=== PATIENT | female | born 1980 | race Caucasian/White ===

== ENCOUNTER 2021-06-08 10:34 | Emergency (ER) | payer OTHER ==
[2021-06-08] MEDS ORDERED: ONDANSETRON 4 MG/2 ML VIAL IVP STA (11:08)
[2021-06-08] MEDS ORDERED: SODIUM CHLORIDE 0.9% 1,000 ML IV STA (11:08)
[2021-06-08] MEDS ORDERED: KETOROLAC 15 MG/ML 1 ML VIAL IVP STA (11:09)
--- NOTE | 2021-06-08 11:18 | ED ---
General Adult HPI - General Chief complaint: Abdominal Pain Stated complaint: possible kidney infection Time Seen by Provider: 06/08/21 11:08 Source: patient, RN notes reviewed, old records reviewed Mode of arrival: ambulatory Limitations: no limitations - History of Present Illness Initial comments: 40-year-old female presents to the emergency room with chills, right flank pain, nausea and vomiting. She states that it started yesterday. She states that she has had watery emesis with generalized malaise. She does have a history of urinary tract infections she denies any fevers at home. No medical history -: days(s) (1) Location: right (flank) Severity scale (1-10): 7 Quality: aching, constant Consistency: constant Associated Symptoms: fever/chills, malaise, nausea/vomiting - Related Data Home Medications Medication Instructions Recorded Confirmed Ibuprofen [Motrin Ib] 800 mg PO Q8H PRN 06/08/21 06/08/21 Previous Rx's Medication Instructions Recorded Ondansetron Odt [Zofran Odt] 4 mg PO Q8HR PRN #10 tab 06/08/21 Sulfamethox-Tmp 800-160Mg [Bactrim 1 each PO Q12HR 14 Days #28 tab 06/08/21 Ds] Allergies Allergy/AdvReac Type Severity Reaction Status Date / Time No Known Allergies Allergy Verified 06/08/21 11:29 Review of Systems ROS Statement: Those systems with pertinent positive or pertinent negative responses have been documented in the HPI. ROS Other: All systems not noted in ROS Statement are negative. Past Medical History Past Medical History: No Reported History History of Any Multi-Drug Resistant Organisms: None Reported Past Surgical History: Orthopedic Surgery Additional Past Surgical History / Comment(s): left wrist, brain surgery Past Psychological History: Depression Smoking Status: Never smoker Past Alcohol Use History: Rare Past Drug Use History: None Reported General Exam Limitations: no limitations General appearance: alert, in no apparent distress Eye exam: Present: normal appearance ENT exam: Present: normal exam, normal oropharynx, mucous membranes moist Respiratory exam: Present: normal lung sounds bilaterally. Absent: respiratory distress, wheezes, rales, rhonchi, stridor, decreased breath sounds, prolonged expiratory Cardiovascular Exam: Present: tachycardia, normal heart sounds GI/Abdominal exam: Present: soft. Absent: distended, guarding, rebound, rigid Extremities exam: Present: normal inspection, full ROM, normal capillary refill. Absent: tenderness, pedal edema, joint swelling, calf tenderness Back exam: Present: normal inspection, full ROM, CVA tenderness (R). Absent: tenderness, CVA tenderness (L), rash noted Neurological exam: Present: alert, oriented X3 Psychiatric exam: Present: normal affect, normal mood Skin exam: Present: warm, dry, intact, normal color. Absent: cyanosis, diaphoretic Course Vital Signs 06/08/21 06/08/21 06/08/21 10:39 12:25 15:14 Temperature 98.1 F 99.4 F 99.2 F Pulse Rate 127 H 116 H 126 H Respiratory 18 20 20 Rate Blood Pressure 103/50 129/70 128/67 O2 Sat by Pulse 100 99 100 Oximetry 06/08/21 16:37 Temperature 100.3 F H Pulse Rate 118 H Respiratory 20 Rate Blood Pressure 100/52 O2 Sat by Pulse 97 Oximetry - Reevaluation(s) Reevaluation #1: 06/08/21 12:17 Patient continues to have right flank pain, nausea and chills. Ultrasound of the renals and bladder ordered Time: 12:17 Reevaluation #2: 06/08/21 13:50 Upon re-exam patient does have right upper quadrant pain on palpation that radiates into her back. She states that she was told she has liver lesions in the past. She has never had a CAT scan. She continues to have 7 out of 10 pain. CAT scan was ordered. Time: 13:50 Medical Decision Making - Medical Decision Making Urine cloudy with 2+ ketones, small leukocyte esterase, 21 RBCs and rare bacteria. Patient will be treated for urinary tract infection. White blood cell count is 11.4, BUN and creatinine are within normal limits. Urinalysis shows 2+ ketones, 21 wbc's and rare bacteria. Ultrasound of the kidneys show no hydronephrosis, no nephrolithiasis and no masses identified. CT abdomen shows no calcified gallstones, no hepatic lesion, biliary tree of normal caliber. There is abnormal enhancement lower pole right kidney which may reflect underlying pyelonephritis. There is a simple cyst lower pole left kidney measuring 1.2 cm over patient's pain is right flank. Right ovarian cyst measuring 1.8 cm. There is no distinct renal mass. Urinary bladder is grossly unremarkable. The findings are suspicious for right-sided pyelonephritis in the lower pole of the right kidney. Case discussed with Dr. Zhong who recommended patient be given an additional dose of Rocephin in the emergency room antibiotics for 14 days and follow-up with her primary care doctor and urology this week. She was given strict return parameters to return if any new or worsening symptoms. Patient is agreeable to this plan of care. - Lab Data Result diagrams: 06/08/21 11:20 06/08/21 11:20 Lab Results 06/08/21 06/08/21 06/08/21 Range/Units 11:20 11:20 11:20 WBC 11.4 H (3.8-10.6) k/uL RBC 4.38 (3.80-5.40) m/uL Hgb 12.5 (11.4-16.0) gm/dL Hct 38.2 (34.0-46.0) % MCV 87.3 (80.0-100.0) fL MCH 28.6 (25.0-35.0) pg MCHC 32.7 (31.0-37.0) g/dL RDW 13.0 (11.5-15.5) % Plt Count 343 (150-450) k/uL MPV 7.1 Neutrophils % 87 % Lymphocytes % 9 % Monocytes % 3 % Eosinophils % 0 % Basophils % 0 % Neutrophils # 9.9 H (1.3-7.7) k/uL Lymphocytes # 1.0 (1.0-4.8) k/uL Monocytes # 0.4 (0-1.0) k/uL Eosinophils # 0.0 (0-0.7) k/uL Basophils # 0.0 (0-0.2) k/uL Sodium 137 (137-145) mmol/L Potassium 3.4 L (3.5-5.1) mmol/L Chloride 105 (98-107) mmol/L Carbon Dioxide 22 (22-30) mmol/L Anion Gap 10 mmol/L BUN 13 (7-17) mg/dL Creatinine 0.59 (0.52-1.04) mg/dL Est GFR (CKD-EPI)AfAm >90 (>60 ml/min/1.73 sqM) Est GFR (CKD-EPI)NonAf >90 (>60 ml/min/1.73 sqM) Glucose 112 H (74-99) mg/dL Calcium 9.2 (8.4-10.2) mg/dL Total Bilirubin 0.9 (0.2-1.3) mg/dL AST 14 (14-36) U/L ALT 9 (4-34) U/L Alkaline Phosphatase 76 (38-126) U/L Total Protein 7.2 (6.3-8.2) g/dL Albumin 4.2 (3.5-5.0) g/dL Urine Color Yellow Urine Appearance Cloudy H (Clear) Urine pH 8.5 H (5.0-8.0) Ur Specific [place] 1.018 (1.001-1.035) Urine Protein Trace H (Negative) Urine Glucose (UA) Negative (Negative) Urine Ketones 2+ H (Negative) Urine Blood Negative (Negative) Urine Nitrite Negative (Negative) Urine Bilirubin Negative (Negative) Urine Urobilinogen <2.0 (<2.0) mg/dL Ur Leukocyte Esterase Small H (Negative) Urine RBC 4 (0-5) /hpf Urine WBC 21 H (0-5) /hpf Ur Squamous Epith Cells 4 (0-4) /hpf Urine Bacteria Rare H (None) /hpf Urine Mucus Rare H (None) /hpf Disposition Clinical Impression: UTI (urinary tract infection), Pyelonephritis Disposition: HOME SELF-CARE Condition: Good Instructions (If sedation given, give patient instructions): Urinary Tract Infection in Women (ED) Additional Instructions: Increase your fluid intake, take antibiotics as prescribed, follow-up with the primary care doctor this week. Return to the emergency room with any new or worsening symptoms including inability to keep any food or fluids down, increas ed pain or fevers. Prescriptions: Sulfamethox-Tmp 800-160Mg [Bactrim Ds] 1 each PO Q12HR 14 Days #28 tab Ondansetron Odt [Zofran Odt] 4 mg PO Q8HR PRN #10 tab PRN Reason: Nausea Is patient prescribed a controlled substance at d/c from ED?: No Referrals: None,Stated [Primary Care Provider] - 1-2 days Time of Disposition: 15:32
[2021-06-08 11:31] LABS: Basophils % (A) 0 %; Eosinophils % (A) 0 %; HCT 38.2 % (34.0-46.0); HGB 12.5 gm/dL (11.4-16.0); Lymphocytes % (A) 9 %; MCH 28.6 pg (25.0-35.0); MCHC 32.7 g/dL (31.0-37.0); MCV 87.3 fL (80.0-100.0); Mean Platelet Volume 7.1; Monocytes # (A) 0.4 k/uL (0-1.0); Monocytes % (A) 3 %; Neutrophils # (A) 9.9 k/uL (1.3-7.7); Neutrophils % (A) 87 %; Platelet Count 343 k/uL (150-450); RBC 4.38 m/uL (3.80-5.40); WBC 11.4 k/uL (3.8-10.6)
[2021-06-08 11:42] LABS: ALT 9 U/L (4-34); AST 14 U/L (14-36); African American GFR (CKD) >90 (>60 ml/min/1.73 sqM); Albumin 4.2 g/dL (3.5-5.0); Alkaline Phosphatase 76 U/L (38-126); Anion Gap 10 mmol/L; Blood Urea Nitrogen 13 mg/dL (7-17); Calcium 9.2 mg/dL (8.4-10.2); Carbon Dioxide 22 mmol/L (22-30); Chloride 105 mmol/L (98-107); Glucose 112 mg/dL (74-99); Non-African American GFR(CKD) >90 (>60 ml/min/1.73 sqM); Potassium 3.4 mmol/L (3.5-5.1); Sodium 137 mmol/L (137-145); Total Bilirubin 0.9 mg/dL (0.2-1.3); Total Protein 7.2 g/dL (6.3-8.2)
[2021-06-08 12:03] LABS: Appearance,Urine Cloudy (Clear); Bacteria,Urine Rare /hpf; Bilirubin,Urine Negative (Negative); Blood,Urine Negative (Negative); Color,Urine Yellow; Glucose,Urine (UA) Negative (Negative); Ketones,Urine 2+ (Negative); Leukocyte Esterase,Urine Small (Negative); Mucus,Urine Rare /hpf; Nitrite,Urine Negative (Negative); PH, Urine 8.5 (5.0-8.0); Protein,Urine Trace (Negative); RBC,Urine 4 /hpf (0-5); Specific Gravity,Urine 1.018 (1.001-1.035); Squamous Epithelial Cell,Urine 4 /hpf (0-4); Urobilinogen,Urine <2.0 mg/dL (<2.0); WBC,Urine 21 /hpf (0-5)
[2021-06-08] MEDS ORDERED: cefTRIAXone IN SWFI 1,000 MG/10 ML SYRINGE IVP STA ×2 (12:13→15:29)
[2021-06-08 12:27] VITALS: RESP 20
[2021-06-08] MEDS ORDERED: MORPHINE SULFATE 4 MG/ML SYRINGE IVP STA (12:46)
--- NOTE | 2021-06-08 13:34 | US ---
EXAMINATION TYPE: US renals and bladder DATE OF EXAM: 06/08/2021 COMPARISON: NONE CLINICAL HISTORY: right flank pain, UTI. Rt flank pain with UTI EXAM MEASUREMENTS: Right Kidney: 11.9 x 4.6 x 5.8 cm Left Kidney: 11.4 x 5.4 x 4.4 cm Right Kidney: No hydronephrosis, small anechoic area measuring 1.0 x 0.9 x 1.1cm Left Kidney: No hydronephrosis or masses seen Bladder: wnl Bilateral Jets seen: Yes There is no evidence for hydronephrosis at this point in time. No nephrolithiasis is seen. No yaw s are identified. The urinary bladder is anechoic. Bilateral ureteral jets are seen. Anechoic area seen in Right ovary measuring 1.9 x 1.9 x 1.6cm IMPRESSION: 1. Small right renal cysts. 2. Right ovarian cyst.
--- NOTE | 2021-06-08 14:37 | CT ---
EXAMINATION TYPE: CT abdomen pelvis w con DATE OF EXAM: 06/08/2021 COMPARISON: None HISTORY: RUQ PAIN CT DLP: 619.5 mGycm CONTRAST: CT scan of the abdomen and pelvis is performed without Oral Contrast and with IV Contrast, patient in jected with 100 mL of Isovue 300. FINDINGS: LUNG BASES-: No visible nodule. No infiltrate. LIVER/GB: No calcified gallstones. No space occupying hepatic lesion. Biliary tree is of normal ca liber. PANCREAS: No inflammation. No distinct mass. SPLEEN: No splenic enlargement. No lesion seen. ADRENALS: No nodule. No thickening. KIDNEYS/BLADDER: Abnormal enhancement lower pole right kidney may reflect underlying pyelonephritis. Correlate clinically. Simple cyst lower pole left kidney measuring 1.2 cm as well as an additional m id pole simple cyst left kidney measuring 8 mm. No hydronephrosis. No nephrolithiasis. No distinct renal mass. Urinary bladder grossly unremarkable. BOWEL: Normal appendix. Normal bowel caliber. No inflammation. GENITAL ORGANS: Right ovarian cyst measuring 1.8 cm. Uterus and left ovary are unremarkable. LYMPH NODES: No greater than 1cm abdominal or pelvic lymph nodes are appreciated. AORTA: No significant abnormality. OSSEOUS STRUCTURES: No significant abnormality is seen. OTHER: No significant additional abnormality is seen. IMPRESSION: 1. The findings are suspicious for right-sided pyelonephritis involving the lower pole of the right k idney.
[2021-06-08] MEDS ORDERED: HYDROcodone/APAP 7.5-325MG 1 EACH TAB PO ONE (15:37)
[2021-06-08] MEDS ORDERED: ACETAMINOPHEN TAB 500 MG TAB PO STA (15:44)
[2021-06-08] MEDS ORDERED: IBUPROFEN 600 MG TAB PO STA (15:45)
[2021-06-08] MEDS ORDERED: HYDROmorphone 0.5 MG/0.5 ML SYRINGE IVP STA (15:45)
[2021-06-08 16:39] VITALS: BP 100/52; PULSE 118; TEMP 100.3
== END 2021-06-08 16:49 | disposition home or self-care (01) ==
LOC: EC 10:34
DX: N39.0 Urinary tract infection, site not specified (principal); N10 Acute pyelonephritis; F32.A Depression, unspecified
CPT/HCPCS: 99284; 96374; 96375 ×4; 96376; 96361; 36415; 80053; 85025; 81001; 87086; 76770; 74177; J2270; J2405; J0696; J1885; J1170; Q9967